=== PATIENT | female | born 1975 | race Caucasian/White ===

== ENCOUNTER 2018-08-27 17:17 | Emergency (ER) | payer MEDICAID ==
[~2018-08-27] VITALS: Ht 157.5 cm; Wt 86.0 kg
[~2018-08-27 17:17] MED LIST: PER10325T PO
[2018-08-27] MEDS ORDERED: morphine 4 MG/ML inj SYRINge IV ONE ×2 (19:05→20:55)
[2018-08-27 19:32] LABS: BASOPHILS % (AUTO) 0.4 % (0-1); EOSINOPHILS % (AUTO) 0.5 % (0-6); HEMATOCRIT 46.1 % (35.0-45.0); HEMOGLOBIN 15.7 g/dl (12.0-16.0); LYMPHOCYTES # (AUTO) 1.6 X10'3 (1.1-4.8); LYMPHOCYTES % (AUTO) 18.5 % (21-51); MEAN CORPUSCULAR HEMOGLOBIN 30.2 PG (27.0-31.0); MEAN CORPUSCULAR VOLUME 88.9 FL (78-98); MEAN PLATELET VOLUME 7.5 FL (7.4-10.4); MONOCYTES # (AUTO) 0.3 X10'3 (0-0.9); MONOCYTES % (AUTO) 3.8 % (2-12); NEUTROPHILS # (AUTO) 6.6 X10'3 (1.8-7.7); NEUTROPHILS % (AUTO) 76.8 % (42-75); PLATELET COUNT 383 X10'3 (140-440); RED BLOOD COUNT 5.19 X10'6 (4.20-5.60); RED CELL DISTRIBUTION WIDTH 13.3 % (11.5-14.5); WHITE BLOOD COUNT 8.6 X10'3 (4.5-11.0)
[2018-08-27 19:38] LABS: URINE HCG NEGATIVE (NEG)
[2018-08-27 19:42] LABS: CLARITY,URINE SLIGHTLY CLOUDY (Clear); COLOR,URINE YELLOW (Yellow); GLUCOSE, URINE NEGATIVE (Neg); KETONES,URINE >=80 mg/dl (Neg); LEUKOCYTE ESTERASE ,URINE NEGATIVE (Neg); NITRITES, URINE NEGATIVE (Neg); OCCULT BLOOD,URINE NEGATIVE (Neg); PH,URINE 5.5 (4.8-8.0); PROTEIN,URINE TRACE mg/dl (Neg); UROBILINOGEN,URINE 0.2 E.U/dL (0.2-1.0)
[2018-08-27 19:51] LABS: UA COLLECTION TYPE CLN CATCH MIDSTREAM
[2018-08-27 19:52] LABS: ALANINE AMINOTRANSFERASE 25 U/L (12-78); ALBUMIN 4.2 G/DL (3.4-5.0); ALKALINE PHOSPHATASE 66 IU/L (46-116); ANION GAP 9 (8-16); ASPARTATE AMINO TRANSFERASE 16 U/L (10-37); BILIRUBIN,TOTAL 0.7 MG/DL (0.1-1.0); BLOOD UREA NITROGEN 7 MG/DL (7-18); BUN/CREATININE RATIO 9.5 (6.6-38.0); CALCIUM 9.2 MG/DL (8.5-10.1); CHLORIDE 105 MMOL/L (99-107); CREATININE 0.74 MG/DL (0.40-0.90); GLUCOSE 91 MG/DL (70-104); POTASSIUM 3.1 MMOL/L (3.5-5.1); SODIUM 140 MMOL/L (135-145); TOTAL PROTEIN 8.5 G/DL (6.4-8.2); eGFR 87 ML/MIN
[2018-08-27 19:54] LABS: BACTERIA,URINE 1+ /HPF (Neg); FINE GRANULAR CAST 0-3 /LPF (NEGATIVE); MUCUS STRANDS MANY /LPF (Neg); RBC,URINE NONE SEEN /HPF (0-2); SQUAMOUS EPITHELIAL CELL,UR MODERATE /LPF (FEW); WBC,URINE 0-4 /HPF (0-4)
[2018-08-27] MEDS ORDERED: ketorolac trometh. 30mg/ml inj. IV STA (20:12)
[2018-08-27] MEDS ORDERED: potassium Cl 20 mEq SR tablet PO STA (20:12)
[2018-08-27 21:14] VITALS: BP 139/85
== END 2018-08-27 21:15 | disposition home or self-care (01) ==
LOC: ER 17:18
DX: R10.33 Periumbilical pain (principal); Z98.890 Other specified postprocedural states; Z88.1 Allergy status to other antibiotic agents; Z88.6 Allergy status to analgesic agent; Z79.899 Other long term (current) drug therapy
CPT/HCPCS: 36415; 74176; 80053; 81001; 81025; 85025; 96374; 96375; 96376; 99284; J1885; J2270

== ENCOUNTER 2019-10-22 08:49 | Day surgery (SDC) | payer MEDICAID ==
[2019-10-16 09:32] LABS: BASOPHILS # (AUTO) 0.1 X10'3 (0-0.2); BASOPHILS % (AUTO) 1.4 % (0-1); EOSINOPHILS # (AUTO) 0.1 X10'3 (0-0.9); EOSINOPHILS % (AUTO) 2.8 % (0-6); LYMPHOCYTES # (AUTO) 1.1 X10'3 (1.1-4.8); LYMPHOCYTES % (AUTO) 22.3 % (21-51); MEAN CORPUSCULAR HEMOGLOBIN 31.1 PG (27.0-31.0); MEAN CORPUSCULAR HGB CONC 33.7 g/dL (33.0-36.5); MEAN CORPUSCULAR VOLUME 92.5 FL (78-98); MEAN PLATELET VOLUME 7.1 FL (7.4-10.4); MONOCYTES # (AUTO) 0.4 X10'3 (0-0.9); MONOCYTES % (AUTO) 8.1 % (2-12); NEUTROPHILS # (AUTO) 3.3 X10'3 (1.8-7.7); NEUTROPHILS % (AUTO) 65.4 % (42-75); PRE OP HEMATOCRIT 43.4 % (35.0-45.0); PRE OP HEMOGLOBIN 14.6 g/dL (12.0-16.0); PRE OP PLATELET COUNT 335 X10'3 (140-440); RED BLOOD COUNT 4.69 X10'6 (4.20-5.60); RED CELL DISTRIBUTION WIDTH 13.8 % (11.5-14.5)
[2019-10-16 09:49] LABS: CHLORIDE 104 MMOL/L (99-107); PRE OP ANION GAP 6 (8-16); PRE OP SODIUM 141 MMOL/L (135-145); TOTAL CARBON DIOXIDE 31.3 MMOL/L (24-32)
[2019-10-16 09:51] LABS: ALBUMIN 3.6 G/DL (3.4-5.0); ALKALINE PHOSPHATASE 87 IU/L (46-116); BLOOD UREA NITROGEN 8 MG/DL (7-18); BUN/CREATININE RATIO 10.3 (6.6-38.0); CALCIUM 8.6 MG/DL (8.5-10.1); CREATININE 0.78 MG/DL (0.40-0.90); PRE OP ALT 31 U/L (30-65); PRE OP AST 24 U/L (10-37); PRE OP BILIRUB, TOTAL 0.4 MG/DL (0.0-1.0); PRE OP GLUCOSE 78 MG/DL (70-104); TOTAL PROTEIN 7.3 G/DL (6.4-8.2); eGFR 81 ML/MIN
[2019-10-16 09:57] LABS: PRE OP POTASSIUM 2.8 MMOL/L (3.4-5.1)
[2019-10-16 10:15] LABS: HCG SERUM QL NEGATIVE
[2019-10-22] VITALS (10 sets, daily range): BP systolic 106–119; BP diastolic 68–96
[~2019-10-22] VITALS: Ht 157.5 cm; Wt 61.0 kg
[~2019-10-22 08:49] MED LIST changes: +LIDOcaine 1% 30ml preserv. free vial ONE; +NO HOME MEDS; -PER10325T PO; +albuterol 2.5 MG/3 ML nebule NEB ONE; +ceFAZolin 2gm in dextrose, iso 50 ML IV ONE; +famotidine 20mg tablet PO ONE; +ringers solution, lacted 1,000 ML IV SCH
[2019-10-22] MEDS ORDERED: fentaNYL/PF 50MCG/1 ML 2ML syringe ONE (11:13)
[2019-10-22] MEDS ORDERED: BUPIVAcaine/PF 2.5mg/ml (0.25%) 10ml vial ONE (11:13)
[2019-10-22] MEDS ORDERED: BUPIVACAINE liposomal/PF 13.3 MG/ML vial IM ONE (11:13)
[2019-10-22] MEDS ORDERED: MIDAZolam 5mg/5ml vial ONE (11:13)
[2019-10-22] MEDS ORDERED: ringers solution, lacted 1,000 ML IV SCH (11:21)
[2019-10-22] MEDS ORDERED: morphine 2 MG/ML inj. syringe IV PRN (11:25)
[2019-10-22] MEDS ORDERED: fentaNYL/PF 50MCG/1 ML 2ML syringe IV PRN (11:25)
[2019-10-22] MEDS ORDERED: ondansetron/PF 4mg/2ml inj IV PRN (11:25)
[2019-10-22] MEDS ORDERED: hydrALAZINE 20mg/ml inj. IV PRN (11:25)
[2019-10-22] MEDS ORDERED: labetalol 20mg/4ml (5mg/ml) syringe IV PRN (11:25)
[2019-10-22] MEDS ORDERED: LIDOcaine 2% (20mg/ml) 5ml vial ONE (11:32)
[2019-10-22] MEDS ORDERED: propofol inj 20 ML IV ONE (11:32)
[2019-10-22] MEDS ORDERED: ondansetron/PF 4mg/2ml inj ONE (11:32)
[2019-10-22] MEDS ORDERED: rocuronium 10mg/ml inj IV ONE (11:32)
[2019-10-22] MEDS ORDERED: dexamethasone sod phosphate 4mg/ml inj. ONE (11:35)
[2019-10-22] MEDS: BUPIVAcaine/PF 2.5 mg/ml (0.25%) 30ml vial ONE ×2 (11:39→11:46)
--- NOTE | 2019-10-22 13:15 | NUR ---
Received from OR via [facility], accompanied by Anesthesiologist DR Ibrahim and report given by Anesthesiolgist. PATIENT WAKING UP and tearful, V/S WNL, 20G PIV left AC, SCD ON, BANDAIDS TO LAP SIGHTS OF ABDOMEN CDI with binder in place. Pt requesting dentures to be re-placed in mouth, glasses returned to patient. O2 mask to 10L.
[2019-10-22] MEDS: morphine 4 MG/ML inj SYRINge IV PRN ×2 (13:22→13:34)
[2019-10-22] MEDS: fentaNYL/PF 50MCG/1 ML 2ML syringe IV PRN ×2 (13:43→14:27)
[2019-10-22] MEDS ORDERED: oxyCODONE/APAP 10/325mg tablet PO PRN (14:05)
--- NOTE | 2019-10-22 15:35 | NUR ---
PATIENT A&OX4, DENIES PAIN, V/S WNL, NEUROVASCULAR CHECKS INTACT, 20G PIV D/C, SCD OFF, BANDAIDS TO LAP SIGHTS OF ABDOMEN CDI, abdominal binder in place. I HAVE REVIEWED D/C INSTRUCTIONS WITH PATIENT AND FAMILY HAVE VERBALIZED UNDERSTANDING. PATIENT WAS D/C HOME WITH ALL BELONGINGS AND FAMILY GAVE TRANSPORT HOME. Pt has script in hand. Pt has voided, ambulated and tolerated fluids.
== END 2019-10-22 15:35 | disposition home or self-care (01) ==
LOC: PAS 08:49
PROVIDERS: ATTEND Surgery
DX: K43.2 Incisional hernia without obstruction or gangrene (principal); Z79.899 Other long term (current) drug therapy; Z11.59 Encounter for screening for other viral diseases; Z98.890 Other specified postprocedural states; Z88.1 Allergy status to other antibiotic agents; Z88.8 Allergy status to other drugs, medicaments and biological substances; Z87.891 Personal history of nicotine dependence; Z72.89 Other problems related to lifestyle; Z82.49 Family history of ischemic heart disease and other diseases of the circulatory system
CPT/HCPCS: 36415; 49656; 64488; 80053; 82948; 84132; 84703; 85025; C1781; C9290; J1100; J2001; J2250; J2270; J2405; J2704; J3010; J3490; J7120; S2900; U0003; A4215; A4618